=== PATIENT | male | born 1980 | race Caucasian/White ===

== ENCOUNTER 2022-06-07 06:30 | Day surgery (SDC) | payer OTHER ==
[2022-06-01 16:09] LABS: BASOPHILS # (AUTO) 0.1 X10'3 (0-0.2); BASOPHILS % (AUTO) 0.8 % (0-1); EOSINOPHILS # (AUTO) 0.2 X10'3 (0-0.9); EOSINOPHILS % (AUTO) 2.5 % (0-6); LYMPHOCYTES # (AUTO) 2.7 X10'3 (1.1-4.8); LYMPHOCYTES % (AUTO) 33.6 % (21-51); MEAN CORPUSCULAR HEMOGLOBIN 32.6 PG (27.0-31.0); MEAN CORPUSCULAR HGB CONC 35.6 g/dL (33.0-36.5); MEAN CORPUSCULAR VOLUME 91.4 FL (78-98); MEAN PLATELET VOLUME 7.9 FL (7.4-10.4); MONOCYTES # (AUTO) 0.7 X10'3 (0-0.9); MONOCYTES % (AUTO) 9.3 % (2-12); NEUTROPHILS # (AUTO) 4.3 X10'3 (1.8-7.7); NEUTROPHILS % (AUTO) 53.8 % (42-75); PRE OP HEMATOCRIT 48.6 % (42.0-52.0); PRE OP HEMOGLOBIN 17.3 g/dL (14.0-17.9); PRE OP PLATELET COUNT 197 X10'3 (140-440); RED BLOOD COUNT 5.31 X10'6 (4.70-6.10); RED CELL DISTRIBUTION WIDTH 13.4 % (11.5-14.5)
[2022-06-01 16:22] LABS: ALBUMIN 3.8 G/DL (3.4-5.0); ALKALINE PHOSPHATASE 75 IU/L (46-116); BLOOD UREA NITROGEN 19 MG/DL (7-18); BUN/CREATININE RATIO 17.6 (5.4-32.0); CALCIUM 8.3 MG/DL (8.5-10.1); CHLORIDE 104 MMOL/L (99-107); CREATININE 1.08 MG/DL (0.60-1.10); PRE OP ALT 73 U/L (30-65); PRE OP ANION GAP 12 (8-16); PRE OP AST 26 U/L (10-37); PRE OP BILIRUB, TOTAL 0.7 MG/DL (0.0-1.0); PRE OP GLUCOSE 108 MG/DL (70-104); PRE OP POTASSIUM 3.9 MMOL/L (3.4-5.1); PRE OP SODIUM 140 MMOL/L (135-145); TOTAL CARBON DIOXIDE 24.1 MMOL/L (24-32); TOTAL PROTEIN 7.5 G/DL (6.4-8.2); eGFR 75 ML/MIN
[2022-06-01 17:06] LABS: PLATELET ESTIMATE NORMAL; SPHEROCYTES 1+; STOMATOCYTES 1+
[~2022-06-07] VITALS: Ht 180.3 cm; Wt 111.6 kg
[2022-06-07] VITALS (8 sets, daily range): BP systolic 109–160; BP diastolic 69–104
[~2022-06-07 06:30] MED LIST: NO HOME MEDS; ceFAZolin inj. 2,000 MG in dextrose 5%-water 100 ML IV ONE; famotidine 20mg tablet PO ONE; ringers solution, lacted 1,000 ML IV SCH
[2022-06-07] MEDS ORDERED: ringers solution, lacted 1,000 ML IV SCH (07:10)
[2022-06-07] MEDS ORDERED: hydrALAZINE 20mg/ml inj. IV PRN (07:10)
[2022-06-07] MEDS ORDERED: labetalol 20mg/4ml (5mg/ml) syringe IV PRN (07:10)
[2022-06-07] MEDS ORDERED: fentaNYL/PF 50MCG/1 ML 2ML syringe IV PRN ×2 (07:10)
[2022-06-07] MEDS ORDERED: morphine 2 MG/ML inj. syringe IV PRN (07:10)
[2022-06-07] MEDS ORDERED: morphine 4 MG/ML inj SYRINge IV PRN (07:10)
[2022-06-07] MEDS ORDERED: ondansetron/PF 4mg/2ml inj IV PRN (07:10)
[2022-06-07] MEDS ORDERED: BUPIVAcaine/PF 2.5 mg/ml (0.25%) 30ml vial ONE (08:31)
[2022-06-07] MEDS ORDERED: BUPIVACAINE liposomal/PF 13.3 MG/ML vial IM ONE (08:31)
[2022-06-07] MEDS ORDERED: LIDOcaine 1% 30ml preserv. free vial ONE (08:31)
[2022-06-07] MEDS ORDERED: fentaNYL/PF 50MCG/1 ML 2ML syringe ONE (08:35)
[2022-06-07] MEDS ORDERED: midazolam 1 mg/ML 2ml injection ONE ×2 (08:35)
[2022-06-07] MEDS ORDERED: propofol inj 20 ML IV ONE (08:36)
[2022-06-07] MEDS ORDERED: LIDOcaine 2% (20mg/ml) 5ml vial ONE (08:36)
[2022-06-07] MEDS ORDERED: glycopyrrolate 0.2mg/ml inj ONE (08:36)
[2022-06-07] MEDS ORDERED: ondansetron/PF 4mg/2ml inj ONE (08:36)
[2022-06-07] MEDS ORDERED: rocuronium 10mg/ml inj IV ONE (08:36)
[2022-06-07] MEDS ORDERED: dexamethasone sod phosphate 4mg/ml inj. ONE (08:36)
[2022-06-07] MEDS ORDERED: labetalol 20mg/4ml (5mg/ml) syringe IV ONE ×2 (09:09)
[2022-06-07] MEDS ORDERED: hydrALAZINE 20mg/ml inj. IV ONE (09:12)
[2022-06-07] MEDS ORDERED: sugammadex 200mg/2ml injection IV ONE (09:47)
[2022-06-07] MEDS ORDERED: oxyCODONE/APAP 5-325mg tablet PO PRN (09:50)
--- NOTE | 2022-06-07 09:54 | NUR ---
Received from OR via [facility], accompanied by Anesthesiologist and report given by TED Anesthesiologist. PATIENT A&OX4, DENIES PAIN, V/S WNL, SCD ON , PIV 20G LUE, BANDAIDS LAPS SITES X3 CLOSED CDI TO ABDOMEN WITH ABDOMINAL BINDER. Addendum: 06/07/22 at 1012 by Shashi Negrete RN Amended: Links added.
--- NOTE | 2022-06-07 10:54 | NUR ---
ALL DISCHARGE CRITERIA HAS BEEN MET. VSS, PAIN AT A TOLERABLE LEVEL, VOIDING AND ABLE TO SAFELY AMBULATE AND TRANSFER SELF. IV TAKEN OUT WITHOUT ANY COMPLICATIONS. ALL DISCHARGE INSTRUCTIONS COVERED WITH PATIENT AND ALL QUESTIONS ANSWERED. PATIENT TAKEN OUT VIA WHEELCHAIR WITH ALL BELONGINGS TO PERSONAL VEHICLE WHERE FAMILY DROVE PATIENT HOME. Addendum: 06/07/22 at 1113 by Shashi Negrete RN Amended: Links added.
== END 2022-06-07 10:54 | disposition home or self-care (01) ==
LOC: PAS 06:30
PROVIDERS: ATTEND Surgery
DX: K43.9 Ventral hernia without obstruction or gangrene (principal); F17.210 Nicotine dependence, cigarettes, uncomplicated; I10 Essential (primary) hypertension; Z98.890 Other specified postprocedural states; Z79.899 Other long term (current) drug therapy
CPT/HCPCS: 36415; 49652; 64488; 71046; 80053; 82948; 85025; 87811; 93005; C1781; C9290; J0360; J0690; J1100; J2250; J2270; J2405; J2704; J3010; J3490; J7030; J7060; J7120; S2900; Z7506; Z7508; Z7512; 85008; A4215; A4618

== ENCOUNTER 2024-05-21 11:33 | Inpatient (IN) | payer OTHER, SELFPAY ==
[~2024-05-21] VITALS: Ht 177.8 cm; Wt 105.9 kg
[~2024-05-21 11:33] MED LIST changes: -ceFAZolin inj. 2,000 MG in dextrose 5%-water 100 ML IV ONE; -famotidine 20mg tablet PO ONE; -ringers solution, lacted 1,000 ML IV SCH
[2024-05-21 12:20] LABS: BASOPHILS % (AUTO) 0.6 % (0-1); EOSINOPHILS # (AUTO) 0.1 X10'3 (0-0.9); EOSINOPHILS % (AUTO) 1.3 % (0-6); HEMATOCRIT 47.3 % (42.0-52.0); HEMOGLOBIN 16.6 g/dl (14.0-17.9); LYMPHOCYTES % (AUTO) 27.1 % (21-51); MEAN CORPUSCULAR HGB CONC 35.1 g/dL (33.0-36.5); MEAN CORPUSCULAR VOLUME 93.9 FL (78-98); MEAN PLATELET VOLUME 9.1 FL (7.4-10.4); MONOCYTES # (AUTO) 0.7 X10'3 (0-0.9); MONOCYTES % (AUTO) 8.8 % (2-12); NEUTROPHILS # (AUTO) 4.6 X10'3 (1.8-7.7); NEUTROPHILS % (AUTO) 62.2 % (42-75); PLATELET COUNT 219 X10'3 (140-440); RED BLOOD COUNT 5.03 X10'6 (4.70-6.10); RED CELL DISTRIBUTION WIDTH 12.7 % (11.5-14.5); WHITE BLOOD COUNT 7.5 X10'3 (4.5-11.0)
[2024-05-21 12:23] LABS: ALANINE AMINOTRANSFERASE 83 U/L (12-78); ALBUMIN 4.2 G/DL (3.4-5.0); ALBUMIN/GLOBULIN RATIO 1.1 (1.1-1.5); ALKALINE PHOSPHATASE 83 IU/L (46-116); ANION GAP 8 (8-16); ASPARTATE AMINO TRANSFERASE 36 U/L (10-37); BILIRUBIN,TOTAL 1.5 MG/DL (0.1-1.0); BLOOD UREA NITROGEN 10 MG/DL (7-18); BUN/CREATININE RATIO 12.3 (10.0-20.0); CALCIUM 9.5 MG/DL (8.5-10.1); CHLORIDE 99 MMOL/L (99-107); CREATININE 0.81 MG/DL (0.60-1.10); GLUCOSE 326 MG/DL (70-104); POTASSIUM 3.9 MMOL/L (3.5-5.1); SODIUM 132 MMOL/L (135-145); TOTAL CARBON DIOXIDE 25.1 MMOL/L (24-32); TOTAL PROTEIN 8.1 G/DL (6.4-8.2); eCRCL 121 ML/MIN; eGFR > 90 ML/MIN
[2024-05-21 12:30] LABS: PRO BRAIN NATRIURETIC PEPTIDE 297 PG/ML (0-125)
[2024-05-21 13:00] LABS: D-DIMER < 0.19 MG/L FEU (0-0.50)
[2024-05-21 13:06] LABS: HEMOGLOBIN A1C 9.9 % (4.5-6.2)
[2024-05-21] MEDS ORDERED: potassium Cl 40MEQ/1/2NS 520ml 520 ML IV PRN (13:55)
[2024-05-21] MEDS ORDERED: acetaminophen 325mg tablet PO PRN (13:55)
[2024-05-21] MEDS ORDERED: magnesium sulf-water 4G/100mL 100 ML IV PRN (13:55)
[2024-05-21] MEDS: PERFLUTREN PROTEIN-A MICROSPHR (Optison) 0.22 MG/ML 3ML VIAL IV ONE (13:55)
[2024-05-21] MEDS: normal saline 1000ml 1,000 ML IV SCH (13:55)
[2024-05-21] MEDS ORDERED: magnesium sulf-water 2g/50mL 50 ML IV PRN (13:55)
[2024-05-21] MEDS ORDERED: morphine 2 MG/ML inj. syringe IV PRN (13:55)
[2024-05-21] MEDS ORDERED: magnesium Cl slow-release 64mg tablet PO PRN (13:55)
[2024-05-21] MEDS ORDERED: HYDROcodone/acetaminophen 5mg/325mg tablet PO PRN (13:55)
[2024-05-21] MEDS ORDERED: ondansetron/PF 4mg/2ml inj IV PRN (13:55)
[2024-05-21] MEDS ORDERED: potassium Cl 20 mEq SR tablet PO PRN ×2 (13:55)
[2024-05-21] MEDS: aspirin 81mg tab.chew PO ONE (14:04)
[2024-05-21 16:15] VITALS: BP 147/101; PULSE 105; RESP 16; TEMP 96.8; O2SAT 97
[2024-05-21] MEDS ORDERED: dextrose 50%-water 50ml dispensing syringe IV PRN ×2 (18:15)
[2024-05-21] MEDS ORDERED: glucagon, human recombinant 1mg kit SUBCUT PRN (18:15)
[2024-05-21] MEDS ORDERED: DEXTROSE 15 GM of carb/4 tabs (each vial/BOTTLE has 4 tablets) PO PRN ×2 (18:15)
[2024-05-21] MEDS: insulin Lispro (HumaLOG) vial - multi-dose SQ STA (19:26)
[2024-05-21] MEDS: K and/or MAG REPLACEMENT MC SCH (19:31)
[2024-05-21 20:00] VITALS: RESP 16; O2SAT 97
[2024-05-21] MEDS: pantoprazole 40mg Tablet.DR PO SCH (20:24)
[2024-05-21] MEDS: INSULIN LISPRO 100 UNIT/ML INSULN.PEN MULTI-DOSE SQ SCH (21:34)
[2024-05-21] MEDS: insulin glargine (Lantus) pen - multi-dose SQ SCH (21:36)
[2024-05-21 22:00] VITALS: BP 147/98; PULSE 77; RESP 16; TEMP 97.8; O2SAT 92
[2024-05-22 06:00] VITALS: BP 145/90; PULSE 73; RESP 19; TEMP 97.2; O2SAT 99
[2024-05-22 07:58] LABS: BASOPHILS % (AUTO) 0.6 % (0-1); EOSINOPHILS # (AUTO) 0.1 X10'3 (0-0.9); EOSINOPHILS % (AUTO) 1.5 % (0-6); HEMATOCRIT 43.9 % (42.0-52.0); HEMOGLOBIN 15.7 g/dl (14.0-17.9); LYMPHOCYTES # (AUTO) 1.7 X10'3 (1.1-4.8); LYMPHOCYTES % (AUTO) 27.4 % (21-51); MEAN CORPUSCULAR HEMOGLOBIN 33.4 PG (27.0-31.0); MEAN CORPUSCULAR HGB CONC 35.7 g/dL (33.0-36.5); MEAN CORPUSCULAR VOLUME 93.8 FL (78-98); MEAN PLATELET VOLUME 8.7 FL (7.4-10.4); MONOCYTES # (AUTO) 0.5 X10'3 (0-0.9); MONOCYTES % (AUTO) 8.4 % (2-12); NEUTROPHILS # (AUTO) 3.8 X10'3 (1.8-7.7); NEUTROPHILS % (AUTO) 62.1 % (42-75); PLATELET COUNT 184 X10'3 (140-440); RED BLOOD COUNT 4.69 X10'6 (4.70-6.10); RED CELL DISTRIBUTION WIDTH 12.6 % (11.5-14.5); WHITE BLOOD COUNT 6.1 X10'3 (4.5-11.0)
[2024-05-22 08:00] VITALS: RESP 14; O2SAT 94
[2024-05-22 08:01] LABS: ALBUMIN 3.4 G/DL (3.4-5.0); ANION GAP 6 (8-16); BLOOD UREA NITROGEN 19 MG/DL (7-18); BUN/CREATININE RATIO 22.9 (10.0-20.0); CALCIUM 8.6 MG/DL (8.5-10.1); CHLORIDE 100 MMOL/L (99-107); CREATININE 0.83 MG/DL (0.60-1.10); GLUCOSE 292 MG/DL (70-104); MAGNESIUM 1.8 MG/DL (1.5-2.4); POTASSIUM 3.7 MMOL/L (3.5-5.1); SODIUM 131 MMOL/L (135-145); TOTAL CARBON DIOXIDE 25.4 MMOL/L (24-32); eCRCL 118 ML/MIN; eGFR > 90 ML/MIN
[2024-05-22] MEDS: INSULIN LISPRO 100 UNIT/ML INSULN.PEN MULTI-DOSE SQ SCH (08:21)
[2024-05-22] MEDS ORDERED: aminophylline 250mg/10ml inj. IV PRN (08:35)
[2024-05-22] MEDS ORDERED: metoprolol tartrate 1mg/ml inj IV PRN (08:35)
[2024-05-22] MEDS ORDERED: regadenoson 0.4mg/5ml syringe IV PRN (08:35)
[2024-05-22] MEDS ORDERED: nitroGLYCERIN 0.4mg SUBLingual tab SL PRN (08:35)
[2024-05-22 09:45] VITALS: BP 144/104; PULSE 85; RESP 16; TEMP 97.3; O2SAT 99
[2024-05-23] MEDS ORDERED: FAMO40TA73 PO (12:32)
[2024-05-23] MEDS ORDERED: NITR0.4T51 SL (12:33)
[2024-05-23] MEDS ORDERED: ALBU2.5V7 NEB (12:36)
== END 2024-05-22 10:00 | disposition left against medical advice (07) | DRG 392 ==
LOC: ER 11:34 → ED HOLD 14:11 → ORTHO 4S 16:15
PROVIDERS: ADMIT Internal Medicine; ATTEND Internal Medicine
DX: K21.9 Gastro-esophageal reflux disease without esophagitis (principal); F17.210 Nicotine dependence, cigarettes, uncomplicated; E11.9 Type 2 diabetes mellitus without complications; R79.89 Other specified abnormal findings of blood chemistry; Z53.21 Procedure and treatment not carried out due to patient leaving prior to being seen by health care provider; M79.602 Pain in left arm; M79.601 Pain in right arm; Z20.822 Contact with and (suspected) exposure to COVID-19
CPT/HCPCS: 36415; 71045; 80048; 80053; 82948; 83036; 83735; 83880; 84484; 85025; 85379; 87081; 87811; 93005; 93306; 99285; G0378; J1815; J7030

== ENCOUNTER 2024-05-22 13:04 | Observation (INO) | payer OTHER, SELFPAY ==
[~2024-05-22] VITALS: Ht 180.3 cm; Wt 105.9 kg
[2024-05-22 15:23] LABS: BASOPHILS % (AUTO) 0.7 % (0-1); EOSINOPHILS # (AUTO) 0.1 X10'3 (0-0.9); EOSINOPHILS % (AUTO) 1.4 % (0-6); HEMATOCRIT 45.5 % (42.0-52.0); HEMOGLOBIN 15.8 g/dl (14.0-17.9); LYMPHOCYTES # (AUTO) 1.9 X10'3 (1.1-4.8); LYMPHOCYTES % (AUTO) 26.2 % (21-51); MEAN CORPUSCULAR HEMOGLOBIN 32.7 PG (27.0-31.0); MEAN CORPUSCULAR HGB CONC 34.8 g/dL (33.0-36.5); MEAN CORPUSCULAR VOLUME 93.9 FL (78-98); MEAN PLATELET VOLUME 8.4 FL (7.4-10.4); MONOCYTES # (AUTO) 0.6 X10'3 (0-0.9); MONOCYTES % (AUTO) 8.7 % (2-12); NEUTROPHILS # (AUTO) 4.7 X10'3 (1.8-7.7); PLATELET COUNT 208 X10'3 (140-440); RED BLOOD COUNT 4.85 X10'6 (4.70-6.10); RED CELL DISTRIBUTION WIDTH 12.8 % (11.5-14.5); WHITE BLOOD COUNT 7.4 X10'3 (4.5-11.0)
[2024-05-22] MEDS ORDERED: metoprolol tartrate 1mg/ml inj IV PRN (15:50)
[2024-05-22] MEDS ORDERED: nitroGLYCERIN 0.4mg SUBLingual tab SL PRN (15:50)
[2024-05-22] MEDS ORDERED: aminophylline 250mg/10ml inj. IV PRN (15:50)
[2024-05-22] MEDS ORDERED: magnesium sulf-water 2g/50mL 50 ML IV PRN (16:00)
[2024-05-22] MEDS ORDERED: magnesium sulf-water 4G/100mL 100 ML IV PRN (16:00)
[2024-05-22] MEDS ORDERED: potassium Cl 40MEQ/1/2NS 520ml 520 ML IV PRN (16:00)
[2024-05-22] MEDS ORDERED: potassium Cl 20 mEq SR tablet PO PRN ×2 (16:00)
[2024-05-22] MEDS ORDERED: magnesium Cl slow-release 64mg tablet PO PRN (16:00)
[2024-05-22] MEDS ORDERED: acetaminophen 325mg tablet PO PRN (16:00)
[2024-05-22] MEDS ORDERED: morphine 2 MG/ML inj. syringe IV PRN ×2 (16:00)
[2024-05-22 17:00] VITALS: BP 154/92; PULSE 77; RESP 12; TEMP 98.1; O2SAT 97
[2024-05-22 18:00] VITALS: BP 138/85; PULSE 83; RESP 18; TEMP 97.4; O2SAT 98
[2024-05-22] MEDS: K and/or MAG REPLACEMENT MC SCH (19:06)
[2024-05-22 20:00] VITALS: RESP 16; O2SAT 98
[2024-05-22 22:00] VITALS: BP 126/77; PULSE 71; RESP 16; TEMP 98.4; O2SAT 98
[2024-05-23] VITALS (10 sets, daily range): BP systolic 114–155; BP diastolic 76–97; PULSE 65–101; RESP 13–18; TEMP 98.1–98.4; O2SAT 95–99
[2024-05-23 06:34] LABS: BASOPHILS # (AUTO) 0.1 X10'3 (0-0.2); EOSINOPHILS # (AUTO) 0.1 X10'3 (0-0.9); EOSINOPHILS % (AUTO) 1.7 % (0-6); HEMATOCRIT 44.7 % (42.0-52.0); HEMOGLOBIN 15.5 g/dl (14.0-17.9); LYMPHOCYTES % (AUTO) 32.3 % (21-51); MEAN CORPUSCULAR HGB CONC 34.7 g/dL (33.0-36.5); MEAN PLATELET VOLUME 8.8 FL (7.4-10.4); MONOCYTES # (AUTO) 0.5 X10'3 (0-0.9); MONOCYTES % (AUTO) 8.7 % (2-12); NEUTROPHILS # (AUTO) 3.5 X10'3 (1.8-7.7); NEUTROPHILS % (AUTO) 56.3 % (42-75); PLATELET COUNT 193 X10'3 (140-440); RED CELL DISTRIBUTION WIDTH 12.8 % (11.5-14.5); WHITE BLOOD COUNT 6.2 X10'3 (4.5-11.0)
[2024-05-23 06:40] LABS: ALBUMIN 3.4 G/DL (3.4-5.0); ANION GAP 6 (8-16); BLOOD UREA NITROGEN 15 MG/DL (7-18); BUN/CREATININE RATIO 18.1 (10.0-20.0); CALCIUM 8.8 MG/DL (8.5-10.1); CHLORIDE 102 MMOL/L (99-107); CREATININE 0.83 MG/DL (0.60-1.10); GLUCOSE 259 MG/DL (70-104); MAGNESIUM 1.9 MG/DL (1.5-2.4); POTASSIUM 3.9 MMOL/L (3.5-5.1); SODIUM 135 MMOL/L (135-145); TOTAL CARBON DIOXIDE 26.7 MMOL/L (24-32); eCRCL 122 ML/MIN; eGFR > 90 ML/MIN
[2024-05-23] MEDS: regadenoson 0.4mg/5ml syringe IV PRN (09:02)
[2024-05-23] MEDS ORDERED: FAMO40TA73 PO (12:32)
[2024-05-23] MEDS ORDERED: NITR0.4T51 SL (12:33)
[2024-05-23] MEDS ORDERED: ALBU2.5V7 NEB (12:36)
== END 2024-05-23 14:30 | disposition home or self-care (01) ==
LOC: ER 13:06 → PCU 3S 15:49 → UNDOADMIN 15:49 → INTOOBSV 15:52 → PCU 3S 15:52 → UNDODISIN 05-23 14:30
PROVIDERS: ADMIT Internal Medicine; ATTEND Internal Medicine
DX: R07.89 Other chest pain (principal); R06.02 Shortness of breath; E11.9 Type 2 diabetes mellitus without complications; J44.9 Chronic obstructive pulmonary disease, unspecified; F17.210 Nicotine dependence, cigarettes, uncomplicated; Z53.29 Procedure and treatment not carried out because of patient's decision for other reasons; Z79.899 Other long term (current) drug therapy
CPT/HCPCS: 36415; 78452; 80048; 82948; 83735; 84484; 85025; 93017; 99284; A9500; G0378; J2785; 99285

== ENCOUNTER 2024-05-27 03:08 | Inpatient (IN) | payer OTHER, SELFPAY ==
[~2024-05-27] VITALS: Ht 177.8 cm; Wt 104.5 kg
[2024-05-27] VITALS (20 sets, daily range): BP systolic 121–151; BP diastolic 68–102; PULSE 97–113; RESP 10–18; TEMP 97.7–98.7; O2SAT 92–99
[~2024-05-27 03:08] MED LIST changes: +ALBU2.5V7 NEB; +FAMO40TA73 PO; +NITR0.4T51 SL; -NO HOME MEDS
[2024-05-27 03:34] LABS: BASOPHILS # (AUTO) 0.1 X10'3 (0-0.2); BASOPHILS % (AUTO) 0.8 % (0-1); EOSINOPHILS # (AUTO) 0.1 X10'3 (0-0.9); EOSINOPHILS % (AUTO) 1.6 % (0-6); HEMOGLOBIN 15.8 g/dl (14.0-17.9); LYMPHOCYTES # (AUTO) 1.7 X10'3 (1.1-4.8); LYMPHOCYTES % (AUTO) 25.3 % (21-51); MEAN CORPUSCULAR HEMOGLOBIN 32.8 PG (27.0-31.0); MEAN CORPUSCULAR HGB CONC 35.1 g/dL (33.0-36.5); MEAN CORPUSCULAR VOLUME 93.5 FL (78-98); MEAN PLATELET VOLUME 8.8 FL (7.4-10.4); MONOCYTES # (AUTO) 0.8 X10'3 (0-0.9); MONOCYTES % (AUTO) 11.7 % (2-12); NEUTROPHILS % (AUTO) 60.6 % (42-75); PLATELET COUNT 193 X10'3 (140-440); RED BLOOD COUNT 4.81 X10'6 (4.70-6.10); RED CELL DISTRIBUTION WIDTH 12.7 % (11.5-14.5); WHITE BLOOD COUNT 6.6 X10'3 (4.5-11.0)
[2024-05-27 03:47] LABS: ALANINE AMINOTRANSFERASE 129 U/L (12-78); ALBUMIN 3.8 G/DL (3.4-5.0); ALBUMIN/GLOBULIN RATIO 1.1 (1.1-1.5); ALKALINE PHOSPHATASE 68 IU/L (46-116); ANION GAP 12 (8-16); ASPARTATE AMINO TRANSFERASE 65 U/L (10-37); BILIRUBIN,TOTAL 0.9 MG/DL (0.1-1.0); BLOOD UREA NITROGEN 12 MG/DL (7-18); BUN/CREATININE RATIO 15.6 (10.0-20.0); CALCIUM 9.1 MG/DL (8.5-10.1); CHLORIDE 101 MMOL/L (99-107); CREATININE 0.77 MG/DL (0.60-1.10); GLUCOSE 304 MG/DL (70-104); POTASSIUM 3.1 MMOL/L (3.5-5.1); SODIUM 134 MMOL/L (135-145); TOTAL CARBON DIOXIDE 20.7 MMOL/L (24-32); TOTAL PROTEIN 7.3 G/DL (6.4-8.2); eCRCL 132 ML/MIN; eGFR > 90 ML/MIN
[2024-05-27 03:53] LABS: PRO BRAIN NATRIURETIC PEPTIDE 415 PG/ML (0-125)
[2024-05-27] MEDS ORDERED: heparin 10,000 units/1 ML INJ IV PRN (04:05)
[2024-05-27] MEDS ORDERED: heparin 10,000 units/1 ML INJ IV ONE (04:05)
[2024-05-27] MEDS: nitroGLYCERIN 0.4mg SUBLingual tab SL PRN (04:14)
[2024-05-27] MEDS: heparin 25,000 UNIT/250ml bag 250 ML IV PRN (04:24)
[2024-05-27] MEDS: heparin 10,000 units/1 ML INJ IV ONE (04:25)
[2024-05-27] MEDS: MESSAGE TO NURSING IV ONE (04:26)
[2024-05-27] MEDS: morphine 4 MG/ML inj SYRINge IV ONE (04:32)
[2024-05-27] MEDS: ondansetron/PF 4mg/2ml inj IV ONE ×2 (04:32→05:09)
[2024-05-27 04:34] LABS: APTT 26 SECONDS (22-32); D-DIMER 0.21 MG/L FEU (0-0.50); PROTHROMBIN TIME 10.8 SECONDS (9.0-12.0)
[2024-05-27] MEDS: aspirin 325mg tablet PO ONE (04:37)
[2024-05-27] MEDS: nitroGLYCERIN 1gm ointment UD TP ONE (04:38)
[2024-05-27] MEDS: metoprolol tartrate 1mg/ml inj IV ONE (05:10)
[2024-05-27] MEDS: hydrALAZINE 20mg/ml inj. IV ONE ×2 (05:12→05:19)
[2024-05-27] MEDS: LORazepam 2 mg/ml vial IV ONE (05:17)
[2024-05-27] MEDS ORDERED: iohexol 350MG/ML 100ml bottle IV ONE ×3 (05:36→06:24)
[2024-05-27] MEDS ORDERED: heparin 1,000unit/ml 10ml vial 10 ML ONE (05:36)
[2024-05-27] MEDS ORDERED: fentaNYL/PF 50MCG/1 ML 2ML syringe ONE (05:36)
[2024-05-27] MEDS ORDERED: verapamil 2.5 mg/ml inj IV ONE (05:36)
[2024-05-27] MEDS ORDERED: midazolam 1 mg/ML 2ml injection ONE ×2 (05:36→06:04)
[2024-05-27] MEDS ORDERED: LIDOcaine 1% 30ml preserv. free vial ONE (05:36)
[2024-05-27] MEDS ORDERED: nitroGLYCERIN 500mcg/5mL D5W 5 ML IV ONE (05:38)
[2024-05-27] MEDS ORDERED: ticagrelor 90mg tablet ONE (06:22)
[2024-05-27] MEDS ORDERED: furosemide 40mg/4ml inj ONE (06:27)
[2024-05-27] MEDS: ticagrelor 90mg tablet PO SCH (10:21)
[2024-05-27] MEDS ORDERED: magnesium Cl slow-release 64mg tablet PO PRN (13:00)
[2024-05-27] MEDS ORDERED: magnesium hydroxide 30ml (MOM) UD suspension PO PRN (13:00)
[2024-05-27] MEDS ORDERED: mag hydrox/Alum hydrox/simeth 30ml oral suspension PO PRN (13:00)
[2024-05-27] MEDS ORDERED: morphine 2 MG/ML inj. syringe IV PRN (13:00)
[2024-05-27] MEDS ORDERED: potassium Cl 20 mEq SR tablet PO PRN (13:00)
[2024-05-27] MEDS ORDERED: potassium Cl 40MEQ/1/2NS 520ml 520 ML IV PRN (13:00)
[2024-05-27] MEDS ORDERED: ondansetron/PF 4mg/2ml inj IV PRN (13:00)
[2024-05-27] MEDS ORDERED: magnesium sulf-water 2g/50mL 50 ML IV PRN (13:00)
[2024-05-27] MEDS ORDERED: magnesium sulf-water 4G/100mL 100 ML IV PRN (13:00)
[2024-05-27] MEDS ORDERED: DEXTROSE 15 GM of carb/4 tabs (each vial/BOTTLE has 4 tablets) PO PRN ×2 (14:45)
[2024-05-27] MEDS ORDERED: dextrose 50%-water 50ml dispensing syringe IV PRN ×2 (14:45)
[2024-05-27] MEDS ORDERED: glucagon, human recombinant 1mg kit SUBCUT PRN (14:45)
[2024-05-27] MEDS: acetaminophen 325mg tablet PO PRN (16:47)
[2024-05-27] MEDS: INSULIN LISPRO 100 UNIT/ML INSULN.PEN MULTI-DOSE SQ SCH (17:00)
[2024-05-27] MEDS ORDERED: LISI40TA13 PO (19:01)
[2024-05-27] MEDS ORDERED: METF-438 PO (19:03)
[2024-05-27] MEDS: docusate sod 100mg capsule PO SCH (20:00)
[2024-05-27] MEDS: K and/or MAG REPLACEMENT MC SCH (20:00)
[2024-05-27] MEDS: insulin glargine (Lantus) pen - multi-dose SQ SCH (21:00)
[2024-05-27] MEDS: potassium Cl 20 mEq SR tablet PO PRN (21:34)
[2024-05-27] MEDS: metoprolol tartrate 25mg tablet PO SCH (21:36)
[2024-05-28 06:00] VITALS: BP 122/88; PULSE 71; RESP 16; TEMP 97.7; O2SAT 100
[2024-05-28 08:00] VITALS: RESP 16; O2SAT 100
[2024-05-28] MEDS: aspirin 81mg, enteric-coated 1 TAB TABLET.DR PO SCH (08:22)
[2024-05-28 11:00] VITALS: BP 129/82; PULSE 94; RESP 15; TEMP 98.2; O2SAT 95
[2024-05-28] MEDS ORDERED: LISI20TA28 PO (12:08)
[2024-05-28] MEDS ORDERED: LOP25T PO (12:08)
[2024-05-28] MEDS ORDERED: CLOP-32 PO (12:08)
[2024-05-28] MEDS ORDERED: ASPI-1071 PO (12:08)
[2024-05-28] MEDS ORDERED: ATOR20TA66 PO (12:08)
[2024-05-28] MEDS ORDERED: LANTUS SQ (12:08)
== END 2024-05-28 13:21 | disposition home or self-care (01) | DRG 322 ==
LOC: ER 03:09 → UNDOADMIN 06:30 → PCU 3S 06:30
PROVIDERS: ADMIT Student in an Organized Health Care Education/Training Program; ATTEND Student in an Organized Health Care Education/Training Program
PROC: 027034Z Dilation of Coronary Artery, One Artery with Drug-eluting Intraluminal Device, Percutaneous Approach (ICD-10-PCS; principal; 2024-05-27)
PROC: 4A023N7 Measurement of Cardiac Sampling and Pressure, Left Heart, Percutaneous Approach (ICD-10-PCS; 2024-05-27)
PROC: B2111ZZ Fluoroscopy of Multiple Coronary Arteries using Low Osmolar Contrast (ICD-10-PCS; 2024-05-27)
DX: I21.09 ST elevation (STEMI) myocardial infarction involving other coronary artery of anterior wall (principal); E78.5 Hyperlipidemia, unspecified; E66.9 Obesity, unspecified; I25.10 Atherosclerotic heart disease of native coronary artery without angina pectoris; I10 Essential (primary) hypertension; F10.10 Alcohol abuse, uncomplicated; E11.9 Type 2 diabetes mellitus without complications; Z68.33 Body mass index [BMI] 33.0-33.9, adult
CPT/HCPCS: 93308; 93458; 96374; 96375; 99285; C9606; 36415; 71045; 80053; 82948; 83880; 84484; 85025; 85347; 85379; 85610; 85730; 93005; 99152; 99153; A4620; A6258; A6402; C1725; C1751; C1769; C1874; C1894; G0378; J0360; J1644; J1815; J1940; J2060; J2250; J2270; J2405; J3010; J3490; J7030; Q9967

== ENCOUNTER 2024-08-08 14:01 | Emergency (ER) | payer MEDICAID, SELFPAY ==
[~2024-08-08] VITALS: Ht 177.8 cm; Wt 102.0 kg
[~2024-08-08 14:01] MED LIST changes: -ALBU2.5V7 NEB; +ASPI-1071 PO; +ATOR20TA66 PO; +CLOP-32 PO; +LANTUS SQ; +LOP25T PO; -NITR0.4T51 SL
[2024-08-08 14:19] LABS: BASOPHILS # (AUTO) 0.1 X10'3 (0-0.2); BASOPHILS % (AUTO) 0.9 % (0-1); EOSINOPHILS # (AUTO) 0.1 X10'3 (0-0.9); EOSINOPHILS % (AUTO) 1.1 % (0-6); HEMATOCRIT 39.6 % (42.0-52.0); HEMOGLOBIN 13.6 g/dl (14.0-17.9); LYMPHOCYTES % (AUTO) 23.4 % (21-51); MEAN CORPUSCULAR HEMOGLOBIN 32.4 PG (27.0-31.0); MEAN CORPUSCULAR HGB CONC 34.4 g/dL (33.0-36.5); MEAN CORPUSCULAR VOLUME 94.2 FL (78-98); MEAN PLATELET VOLUME 8.1 FL (7.4-10.4); MONOCYTES # (AUTO) 0.6 X10'3 (0-0.9); MONOCYTES % (AUTO) 7.1 % (2-12); NEUTROPHILS # (AUTO) 5.8 X10'3 (1.8-7.7); NEUTROPHILS % (AUTO) 67.5 % (42-75); PLATELET COUNT 224 X10'3 (140-440); RED BLOOD COUNT 4.21 X10'6 (4.70-6.10); RED CELL DISTRIBUTION WIDTH 14.2 % (11.5-14.5); WHITE BLOOD COUNT 8.6 X10'3 (4.5-11.0)
[2024-08-08 14:32] LABS: ALANINE AMINOTRANSFERASE 56 U/L (12-78); ALBUMIN/GLOBULIN RATIO 1.1 (1.1-1.5); ALKALINE PHOSPHATASE 54 IU/L (46-116); ANION GAP 10 (8-16); ASPARTATE AMINO TRANSFERASE 40 U/L (10-37); BLOOD UREA NITROGEN 10 MG/DL (7-18); BUN/CREATININE RATIO 10.2 (10.0-20.0); CHLORIDE 103 MMOL/L (99-107); CREATININE 0.98 MG/DL (0.60-1.10); GLUCOSE 143 MG/DL (70-104); POTASSIUM 3.8 MMOL/L (3.5-5.1); SODIUM 139 MMOL/L (135-145); TOTAL CARBON DIOXIDE 26.5 MMOL/L (24-32); TOTAL PROTEIN 7.5 G/DL (6.4-8.2); eCRCL 100 ML/MIN; eGFR 83 ML/MIN
[2024-08-08 14:41] LABS: PRO BRAIN NATRIURETIC PEPTIDE 613 PG/ML (0-125)
[2024-08-08] MEDS: LORazepam 1 MG tablet PO ONE (18:39)
[2024-08-08 18:53] LABS: D-DIMER < 0.19 MG/L FEU (0-0.50)
[2024-08-08 19:43] VITALS: BP 154/104; PULSE 68; RESP 15; TEMP 98.3; O2SAT 96
== END 2024-08-08 19:46 | disposition home or self-care (01) ==
LOC: ER 14:01
DX: R42 Dizziness and giddiness (principal); I25.10 Atherosclerotic heart disease of native coronary artery without angina pectoris; I21.9 Acute myocardial infarction, unspecified; Z79.82 Long term (current) use of aspirin; Z79.899 Other long term (current) drug therapy
CPT/HCPCS: 36415; 71045; 80053; 82948; 83880; 84484; 85025; 85379; 93005; 99285